=== PATIENT | female | born 1960 | race Caucasian/White ===

== ENCOUNTER 2018-11-20 10:54 | Inpatient (IN) | payer OTHER ==
--- OUTSIDE RECORDS SUMMARY | 2018-11-20 10:59 | XMS REPORT | Clinical Summary ---
:1960 Author Organization [facility] Address [address] [place] [id number] Care Team Providers Name Role Phone Asked, No Pcp Primary Care Provider Unavailable Allergies No Known Allergies Medications No known medications Active Problems Not on file Encounters Date Type Specialty Care Team Description 04/18/2018 Office Visit Orthopedic Surgery Yusra Bond, Hammad Mayers, left MD (Primary Dx) after 11/19/2017 Family History Medical History Relation Name Comments Cancer Maternal Grandmother Isabel Skin, pancreatic Osteoporosis Maternal Grandmother Isabel Scoliosis Maternal Grandmother Isabel Anesthesia problems Mother Deidre Severe nausea and vomiting Diabetes Mother Deidre Pre-diabetes Osteoporosis Mother Deidre Scoliosis Mother Deidre Diabetes Paternal Grandmother Thelma Osteoporosis Paternal Grandmother Thelma Anesthesia problems Sister Cecelia Severe nausea and vomiting Osteoporosis Sister Cecelia Relation Name Status Comments Maternal Grandmother Isabel Mother Deidre Paternal Grandmother Thelma Sister Cecelia Social History Tobacco Use Types Packs/Day Years Used Date Former Smoker Cigarettes 0.25 Smokeless Tobacco: Former User Comments: As a teenager from age of 14 to 22. Alcohol Use Drinks/Week oz/Week Comments Yes 1 Standard drinks or equivalent Social Sex Assigned at Date Recorded Not on file Job Start Date Occupation Industry Not on file Not on file Not on file Travel History Travel Start Travel End No recent travel history available. Last Filed Vital Signs Not on file Plan of Treatment Health Maintenance Due Date Last Done Comments BREAST CANCER SCREENING 2012 COLON CANCER SCREENING 2012 SHINGLES VACCINES (#1) 2012 INFLUENZA VACCINE 01/30/2019 Procedures Procedure Name Priority Date/Time Associated Diagnosis Comments DE INJECT Routine 04/18/2018 9:00 AM Hammad Mayers, Results for this ANES/STEROID CDT left procedure are in [facility] the results DIGITAL NERVE section. XR FOOT 3+ VW LEFT Routine 04/18/2018 8:44 AM NeuromPanda yang's, Results for this CDT left procedure are in the results section. after 11/19/2017 Results NERVE BLOCK (04/18/2018 9:00 AM CDT) Narrative Performed At Yusra Bond MD 04/18/20189:10 AM Nerve Block Date/Time: 04/18/2018 9:05 AM Performed by: YUSRA BOND Authorized by: YUSRA BOND Consent: Consent obtained:Verbal Consent given by:Patient Risks discussed:Pain Alternatives discussed:Alternative treatment Location: Body area:Lower extremity Lower extremity nerve:Digital Laterality:Left Pre-procedure details: Skin preparation:Alcohol Procedure details (see MAR for exact dosages): Block needle gauge:27 G Left Lower Extremity Medications Administered: 0.25 mL bupivacaine 0.5 % (5 mg/mL); 0.25 mL lidocaine 10 mg/mL (1 %); 20 mg methylPREDNISolone acetate 40 mg/mL Post-procedure details: Patient tolerance of procedure:Tolerated well, no immediate complications XR Foot 3+ Vw Left (04/18/2018 8:44 AM CDT) Specimen Narrative Performed At 3 views taken today of the left foot show well-preserved joint spaces [facility] throughout. There is no significant deformity or malalignment. There are no acute fractures or dislocations. The longitudinal arch appears neutral. There is no soft tissue swelling noted. Performing Organization Address City/State/Zipcode Phone Number [facility] [address] [place] [address] after 11/19/2017 Advance Directives Patient has advance care planning documents on file. For more information, please contact:[facility] [place] [address]
[2018-11-20] MEDS ORDERED: CLINDAMYCIN 600MG/D5W 600 MG/50 ML BAG IV ONE (11:40)
[2018-11-20] MEDS ORDERED: NA CHLORIDE 0.9% 1,000 ML ONE (11:40)
[2018-11-20 12:02] LABS: Absolute Lymphocytes (CBC) 0.8 K/uL (0.7-4.9); Absolute Monocytes 0.8 K/uL (0.1-1.3); Absolute Neutrophil 13.4 K/uL (1.8-8.0); Basophils % 0.4 % (0-1.3); Eosinophils % 0.3 % (0-4.4); MPV 8.7 fL (7.6-11.3); Monocytes % 5.4 % (3.3-12.3); RBC Red Blood Cell Count 3.98 M/uL (3.86-4.86)
[2018-11-20 12:18] LABS: Potassium 3.6 mmol/L (3.5-5.1)
--- NOTE | 2018-11-20 12:21 | RAD REPORT ---
EXAM DESCRIPTION: US - Extremity Nonvascular Limited - 11/20/2018 12:12 pm CLINICAL HISTORY: evaluate for abscess;Pain COMPARISON: No comparisons TECHNIQUE: Real-time sonographic evaluation of the area of interest was performed. FINDINGS: Significant thickening of the skin and subcutaneous tissues present compatible with cellul itis. Small poorly defined subcutaneous fluid collections are seen, suspicious for small subcutaneous abscesses.
[2018-11-20 13:32] LABS: Platelet Estimate ADEQ
[2018-11-20 13:33] LABS: Blood Morphology Comment NOT SEEN (NOT SEEN)
--- NOTE | 2018-11-20 14:36 | ER ---
Nurse's Notes [facility] Name: Samantha Hauser Age: 58 yrs Sex: Female : 1960 Arrival Date: 11/20/2018 Time: 10:55 Bed 13 Private MD: Diagnosis: Cellulitis of right upper limb-failed outpatient therapy;Cutaneous abscess of right upper limb Presentation: 11/20 11:01 Presenting complaint: Patient states: redness and swelling to R upper arm that began 3 ss days ago. Pt began taking Bactrim 3 days ago, but symptoms have not improved, but gotten worse. Sent by urgent care for further evaluation. Transition of care: patient was not received from another setting of care. Onset of symptoms was November 18, 2018. Risk Assessment: Do you want to hurt yourself or someone else? Patient reports no desire to harm self or others. Initial Sepsis Screen: Does the patient meet any 2 criteria? HR > 90 bpm. Does the patient have a suspected source of infection? No. Patient's initial sepsis screen is negative. Care prior to arrival: None. 11:01 Method Of Arrival: Ambulatory ss 11:01 Acuity: YANNICK 3 ss Historical: - Allergies: 11:03 No Known Allergies; ss - Home Meds: 11:03 Bactrim DS 800-160 mg Oral tab [Active]; ss - PMHx: 11:03 None; ss - PSHx: 11:03 rhinoplasty; ss - Immunization history:: Adult Immunizations up to date. - Social history:: Smoking status: Patient/guardian denies using tobacco. - Ebola Screening: : Patient denies exposure to infectious person Patient denies travel to an Ebola-affected area in the 21 days before illness onset. Screenin:05 Abuse screen: Denies threats or abuse. Nutritional screening: No deficits noted. tw2 Tuberculosis screening: No symptoms or risk factors identified. Fall Risk None identified. Assessment: 11:05 General: Appears in no apparent distress. well groomed, Behavior is calm, cooperative, tw2 appropriate for age. Pain: Complains of pain in right arm and right tricep. Neuro: Level of Consciousness is awake, alert, obeys commands, Oriented to person, place, time, situation. Cardiovascular: Heart tones S1 S2 Patient's skin is warm and dry. Respiratory: Airway is patent Respiratory effort is even, unlabored, Respiratory pattern is regular, symmetrical, Breath sounds are clear bilaterally. GI: No signs and/or symptoms were reported involving the gastrointestinal system. : No signs and/or symptoms were reported regarding the genitourinary system. EENT: No signs and/or symptoms were reported regarding the EENT system. Derm: Abscess located on right tricep. 13:22 Reassessment: Patient appears in no apparent distress at this time. No changes from tw2 previously documented assessment. Patient and/or family updated on plan of care and expected duration. Pain level reassessed. Patient is alert, oriented x 3, equal unlabored respirations, skin warm/dry/pink. 15:41 Reassessment: Patient appears in no apparent distress at this time. No changes from tw2 previously documented assessment. Patient and/or family updated on plan of care and expected duration. Pain level reassessed. Patient is alert, oriented x 3, equal unlabored respirations, skin warm/dry/pink. Vital Signs: 11:03 BP 113 / 58; Pulse 100; Resp 16; Temp 98.9(TE); Pulse Ox 97% on R/A; Weight 61.23 kg; ss Height 5 ft. 4 in. (162.56 cm); 13:23 BP 112 / 64; Pulse 103; Resp 17; Pulse Ox 97% on R/A; tw2 14:09 BP 115 / 68; Pulse 111; Resp 17; Temp 99.3(TE); Pulse Ox 97% on R/A; mh5 15:00 BP 114 / 66; Pulse 106; Resp 17; Pulse Ox 96% ; tw2 11:03 Body Mass Index 23.17 (61.23 kg, 162.56 cm) ED Course: 10:55 Patient arrived in ED. as 11:02 Triage completed. ss 11:03 Arm band placed on right wrist. ss 11:05 Lola Arevalo RN is Primary Nurse. tw2 11:05 Yael Lindsey FNP-C [facility]. kb 11:05 Milan Vazquez MD is Attending Physician. kb 11:05 Placed in gown. Bed in low position. Call light in reach. Adult w/ patient. Pulse ox tw2 on. NIBP on. 11:30 Inserted saline lock: 22 gauge in left antecubital area, using aseptic technique. Blood tw2 collected. 11:40 Inserted 23g butterfly stick to LEFT hand for 2nd set of blood cultures at this time. tw2 12:12 US Extrmty Nonvasular Limited In Process Unspecified. EDMS 14:33 Denita Borja MD is Hospitalizing Provider. kb 17:13 Report given to Tatiana Silver RN. aj1 17:33 No provider procedures requiring assistance completed. Patient admitted, IV remains in tw2 place. Administered Medications: 11:30 Drug: NS 0.9% 1000 ml Route: IV; Rate: 1000 ml; Site: left antecubital; tw2 17:21 Follow up: IV Status: Completed infusion; IV Intake: 1000ml tw2 11:48 Drug: Clindamycin 600 mg Route: IVPB; Infused Over: 30 mins; Site: left antecubital; tw2 12:20 Follow up: Response: No adverse reaction; IV Status: Completed infusion tw2 15:15 Drug: vancoMYCIN 1 grams Route: IVPB; Infused Over: 2 hrs; Site: left antecubital; tw2 17:22 Follow up: Response: No adverse reaction; IV Status: Completed infusion tw2 Intake: 17:21 IV: 1000ml; Total: 1000ml. tw2 Outcome: 14:35 Decision to Hospitalize by Provider. kb 17:33 Admitted to Med/surg accompanied by tech, via wheelchair. tw2 17:33 Condition: stable 17:33 Instructed on the need for admit. 17:34 Patient left the ED. tw2 Signatures: Dispatcher [employer] EDSD Yael Lindsey, MANAGER THERAPY-C MANAGER THERAPY-Candy Martin RN RN aj1 Hien Ro Shelby, RN RN Lola Arevalo RN RN tw2 Darby Ro [facility]
--- NOTE | 2018-11-20 14:36 | EDPHYS ---
Physician Documentation [facility] Name: Samantha Hauser Age: 58 yrs Sex: Female : 1960 Arrival Date: 11/20/2018 Time: 10:55 Bed 13 Private MD: ED Physician Milan Vazquez HPI: 11/20 11:37 This 58 yrs old Female presents to ER via Ambulatory with complaints of kb Cellulitis. 11:38 The patient presents with cellulitis of the right tricep. Description: erythematous, kb hot, swollen, tense. Onset: The symptoms/episode began/occurred 3 day(s) ago. Possible cause(s): unknown. Associated signs and symptoms: Pertinent positives: erythema, fever, swelling, Pertinent negatives: discharge, drainage, foreign body sensation, headache, nausea, shortness of breath, vomiting. Modifying factors: the symptoms are alleviated by nothing, the symptoms are aggravated by pressure, touching. Severity of symptoms: At their worst the symptoms were moderate, in the emergency department the symptoms are unchanged. The patient has not experienced similar symptoms in the past. The patient has not recently seen a physician. Pt reports she felt a pinprick sensation to back of arm on Sunday night, woke up with cellulitis to back of right arm Sunday morning. Started Bactrim DS BID that day and has taken 5 doses, but symptoms are getting worse. . Historical: - Allergies: 11:03 No Known Allergies; ss - Home Meds: 11:03 Bactrim DS 800-160 mg Oral tab [Active]; ss - PMHx: 11:03 None; ss - PSHx: 11:03 rhinoplasty; ss - Immunization history:: Adult Immunizations up to date. - Social history:: Smoking status: Patient/guardian denies using tobacco. - Ebola Screening: : Patient denies exposure to infectious person Patient denies travel to an Ebola-affected area in the 21 days before illness onset. ROS: 11:41 Neck: Negative for injury, pain, and swelling, Cardiovascular: Negative for chest pain, kb palpitations, and edema, Respiratory: Negative for shortness of breath, cough, wheezing, and pleuritic chest pain, Abdomen/GI: Negative for abdominal pain, nausea, vomiting, diarrhea, and constipation, MS/Extremity: Negative for injury and deformity, Neuro: Negative for headache, weakness, numbness, tingling, and seizure. 11:41 Constitutional: Positive for fever. 11:41 Skin: Positive for cellulitis, of the right tricep. Exam: 11:41 Skin: cellulitis, that is moderate, on the right tricep. kb 11:41 Constitutional: This is a well developed, well nourished patient who is awake, alert, kb and in no acute distress. Head/Face: Normocephalic, atraumatic. Chest/axilla: Normal chest wall appearance and motion. Nontender with no deformity. No lesions are appreciated. Cardiovascular: Regular rate and rhythm with a normal S1 and S2. No gallops, murmurs, or rubs. Normal PMI, no JVD. No pulse deficits. Respiratory: Lungs have equal breath sounds bilaterally, clear to auscultation and percussion. No rales, rhonchi or wheezes noted. No increased work of breathing, no retractions or nasal flaring. Abdomen/GI: Soft, non-tender, with normal bowel sounds. No distension or tympany. No guarding or rebound. No evidence of tenderness throughout. Neuro: Awake and alert, GCS 15, oriented to person, place, time, and situation. Cranial nerves II-XII grossly intact. Motor strength 5/5 in all extremities. Sensory grossly intact. Cerebellar exam normal. Normal gait. 11:41 Musculoskeletal/extremity: ROM: limited active range of motion, limited active range of kb motion due to pain, in the anterior aspect of right shoulder. Vital Signs: 11:03 BP 113 / 58; Pulse 100; Resp 16; Temp 98.9(TE); Pulse Ox 97% on R/A; Weight 61.23 kg; ss Height 5 ft. 4 in. (162.56 cm); 13:23 BP 112 / 64; Pulse 103; Resp 17; Pulse Ox 97% on R/A; tw2 14:09 BP 115 / 68; Pulse 111; Resp 17; Temp 99.3(TE); Pulse Ox 97% on R/A; mh5 15:00 BP 114 / 66; Pulse 106; Resp 17; Pulse Ox 96% ; tw2 11:03 Body Mass Index 23.17 (61.23 kg, 162.56 cm) MDM: 11:05 Patient medically screened. kb 11:41 Data reviewed: vital signs, nurses notes. Data interpreted: Pulse oximetry: on room air kb is 97 %. Interpretation: normal. 13:52 ED course: ERP to evaluate pt . kb 14:30 Counseling: I had a detailed discussion with the patient and/or guardian regarding: the kb historical points, exam findings, and any diagnostic results supporting the discharge/admit diagnosis, lab results, radiology results, the need for further work-up and treatment in the hospital. 11/20 11:23 Order name: CBC with Diff; Complete Time: 13:36 kb 11/20 11:23 Order name: Basic Metabolic Panel; Complete Time: 12:20 kb 11/20 11:23 Order name: Blood Culture Adult (2) kb 11/20 11:23 Order name: US Extrmty Nonvasular Limited; Complete Time: 12:23 kb 11/20 12:22 Order name: Manual Differential; Complete Time: 13:36 EDMS 11/20 13:31 Order name: Procalcitonin; Complete Time: 14:05 em1 11/20 11:23 Order name: IV Start; Complete Time: 11:51 kb 11/20 15:13 Order name: Diet Regular; Complete Time: 15:14 ss Administered Medications: 11:30 Drug: NS 0.9% 1000 ml Route: IV; Rate: 1000 ml; Site: left antecubital; tw2 17:21 Follow up: IV Status: Completed infusion; IV Intake: 1000ml tw2 11:48 Drug: Clindamycin 600 mg Route: IVPB; Infused Over: 30 mins; Site: left antecubital; tw2 12:20 Follow up: Response: No adverse reaction; IV Status: Completed infusion tw2 15:15 Drug: vancoMYCIN 1 grams Route: IVPB; Infused Over: 2 hrs; Site: left antecubital; tw2 17:22 Follow up: Response: No adverse reaction; IV Status: Completed infusion tw2 Disposition: 18:01 Co-signature as Attending Physician, Milan Vazquez MD. rn Disposition: 11/20/18 14:35 Hospitalization ordered by Denita Borja for Inpatient Admission. Preliminary diagnosis are Cellulitis of right upper limb - failed outpatient therapy, Cutaneous abscess of right upper limb. - Bed requested for Telemetry/MedSurg (Inpatient). - Status is Inpatient Admission. tw2 - Condition is Stable. - Problem is new. - Symptoms are unchanged. UTI on Admission? No Signatures: Dispatcher [employer] EDMS Yael Lindsey, TECHNICAL ENGINEER-C TECHNICAL ENGINEER-Ckb Milan Vazquez MD MD rn Martinez, Eric em1 Lacy Maya RN RN ss Lola Arevalo RN RN tw2 Corrections: (The following items were deleted from the chart) 14:32 11:41 Constitutional: This is a well developed, well nourished patient who is awake, kb alert, and in no acute distress. Head/Face: Normocephalic, atraumatic. Chest/axilla: Normal chest wall appearance and motion. Nontender with no deformity. No lesions are appreciated. Cardiovascular: Regular rate and rhythm with a normal S1 and S2. No gallops, murmurs, or rubs. Normal PMI, no JVD. No pulse deficits. Respiratory: Lungs have equal breath sounds bilaterally, clear to auscultation and percussion. No rales, rhonchi or wheezes noted. No increased work of breathing, no retractions or nasal flaring. Abdomen/GI: Soft, non-tender, with normal bowel sounds. No distension or tympany. No guarding or rebound. No evidence of tenderness throughout. MS/ Extremity: Pulses equal, no cyanosis. Neurovascular intact. Full, normal range of motion. Neuro: Awake and alert, GCS 15, oriented to person, place, time, and situation. Cranial nerves II-XII grossly intact. Motor strength 5/5 in all extremities. Sensory grossly intact. Cerebellar exam normal. Normal gait. kb 16:52 14:35 Hospitalization Ordered by Denita Borja MD for Inpatient Admission. Preliminary em1 diagnosis is Cellulitis of right upper limb - failed outpatient therapy; Cutaneous abscess of right upper limb. Bed requested for Telemetry/MedSurg (Inpatient). Status is Inpatient Admission. Condition is Stable. Problem is new. Symptoms are unchanged. UTI on Admission? No. kb 17:34 16:52 11/20/2018 14:35 Hospitalization Ordered by Denita Borja MD for Inpatient tw2 Admission. Preliminary diagnosis is Cellulitis of right upper limb - failed outpatient therapy; Cutaneous abscess of right upper limb. Bed requested for Telemetry/MedSurg (Inpatient). Status is Inpatient Admission. Condition is Stable. Problem is new. Symptoms are unchanged. UTI on Admission? No. em1
[2018-11-20] MEDS ORDERED: VANCOMYCIN/NS 1 gm 1 GM/250 ML BAG IV ONE (15:00)
--- NOTE | 2018-11-20 15:11 | P.HP ---
Patient History Date of Service: 11/20/18 Reason for admission: Cellulitis, failed outpatient treat History of Present Illness: This is a 58-year-old previously healthy female admitted for cellulitis of her right upper extremity. Per patient, this started on Sunday, 3 days ago, with an erythematous area that has gotten progressively worse. She did get a prescription of Bactrim double-strength on Sunday. She has had a total of 5 doses of Bactrim. Even with the antibiotics, the symptoms have gotten progressively worse. She has now developed fevers, pain to touch on the area, hot warm area with pain in the shoulder joint as well. She therefore came to the ER for further evaluation. In the ER, her initial vital signs were blood pressure 113/53, heart rate of 100 , respirations of 16, afebrile at 98.9, satting 97% on room air. She has a BMI of 23.7. Her labs were remarkable for WBC count of 15.1, otherwise were fairly unremarkable. An ultrasound of the extremity showed small poorly defined subcutaneous fluid collection, suspicious for small subcutaneous abscesses. Not big enough to drain. She received clindamycin, vancomycin IV fluids in the ER. At the time of my exam, she was alert oriented x3, in no acute distress and hemodynamically stable. She was admitted for failed outpatient antibiotic therapy for cellulitis on her right upper extremity and for IV antibiotic treatment. Allergies No Known Allergies Allergy (Unverified 11/20/18 14:51) Home medications list reviewed: Yes - Past Medical/Surgical History Diabetic: No Past Medical History: Patient denies medical history (Open) -: Rhinoplasty - Social History Smoking Status: Never smoker Review of Systems 10-point ROS is otherwise unremarkable Physical Examination - Physical Exam General: Alert, In no apparent distress, Oriented x3 HEENT: Atraumatic, PERRLA, Mucous membr. moist/pink, EOMI, Sclerae nonicteric Neck: Supple, 2+ carotid pulse no bruit, No LAD, Without JVD or thyroid abnormality Respiratory: Clear to auscultation bilaterally, Normal air movement Cardiovascular: Regular rate/rhythm, Normal S1 S2 Gastrointestinal: Normal bowel sounds, No tenderness Musculoskeletal: Tenderness (Right shoulder) Integumentary: Skin lesion, Erythema (On right tricep), Warmth Neurological: Normal gait, Normal speech, Normal strength at 5/5 x4 extr, Normal tone, Normal affect Lymphatics: No axilla or inguinal lymphadenopathy - Studies Laboratory Data (last 24 hrs) 11/20/18 10:30: Sodium 137, Potassium 3.6, BUN 6 L, Creatinine 0.74, Glucose 111 H 11/20/18 10:30: WBC 15.1 H, Hgb 12.8, Hct 38.0, Plt Count 282 Assessment and Plan - Problems (Diagnosis) (1) Cellulitis Current Visit: Yes Status: Acute Plan: Failed outpatient treatment with Bactrim double-strength. Will start IV clindamycin and vancomycin for MRSE coverage. 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 Qualifiers: Site of cellulitis: extremity Site of cellulitis of extremity: upper extremity Laterality: right Qualified Code(s): L03.113 - Cellulitis of right upper limb (2) Failure of outpatient treatment Current Visit: Yes Status: Acute (3) Leukocytosis Current Visit: Yes Status: Acute Qualifiers: Leukocytosis type: bandemia Qualified Code(s): D72.825 - Bandemia - Plan DVT prophylaxis: Lovenox GI prophylaxis: None Diet: Heart healthy Disposition: Admit to floor. Start IV antibiotics, demarcate area and monitor. - Advance Directives Does patient have a Living Will: No Does patient have a Durable POA for Healthcare: No
[2018-11-20] MEDS: ENOXAPARIN 40 MG/0.4 ML SQ SCH (18:00)
[2018-11-20] MEDS: TRAMADOL HCL 50 MG TAB PO PRN (18:29)
[2018-11-20] MEDS: CLINDAMYCIN INJ 600 MG in NA CHLORIDE 0.9% 50 ML IV SCH (18:30)
[2018-11-20] MEDS ORDERED: POTASSIUM CL SA 10 MEQ TAB PO ONE (19:00)
[2018-11-20 19:23] LABS: Urine Appearance CLEAR; Urine Bilirubin NEGATIVE (NEG); Urine Blood NEGATIVE (NEG); Urine Color YELLOW; Urine Glucose NEGATIVE (NEG); Urine Protein NEGATIVE (NEG); Urine Specific Gravity <=1.005 (1.005-1.030); Urine Urobilinogen 0.2 mg/dL (0.2-1.0); Urine pH 6.5 (5.0-7.0)
[2018-11-20 19:24] LABS: Urine Microscopic Reflex NO UMIC
[2018-11-20] MEDS ORDERED: ACETAMINOPHEN 325 MG TABLET PO ONE (20:00)
[2018-11-21] MEDS: CLINDAMYCIN INJ 600 MG in NA CHLORIDE 0.9% 50 ML IV SCH ×3 (01:17→17:26)
[2018-11-21] MEDS: TRAMADOL HCL 50 MG TAB PO PRN (01:29)
[2018-11-21] MEDS: NA CHLORIDE 0.9% 1,000 ML IV SCH ×2 (05:40→17:26)
[2018-11-21 06:08] LABS: Absolute Lymphocytes (CBC) 1.3 K/uL (0.7-4.9); Absolute Monocytes 0.8 K/uL (0.1-1.3); Absolute Neutrophil 9.9 K/uL (1.8-8.0); Basophils % 0.2 % (0-1.3); Eosinophils % 2.9 % (0-4.4); Hematocrit 30.6 % (36.0-45.0); Lymphocytes % 10.5 % (15.3-44.8); MPV 8.7 fL (7.6-11.3); Monocytes % 6.4 % (3.3-12.3)
[2018-11-21 06:18] LABS: ALT/SGPT 11 U/L (12-78); AST/SGOT 19 U/L (15-37); Alkaline Phosphatase 73 U/L (45-117); BUN Blood Urea Nitrogen 7 mg/dL (7-18); Bicarbonate 24 mmol/L (21-32); Bilirubin Total 1.1 mg/dL (0.2-1.0); Glucose Level 94 mg/dL (74-106); Magnesium 2.1 mg/dL (1.8-2.4); Phosphorus 2.3 mg/dL (2.5-4.9); Potassium 4.1 mmol/L (3.5-5.1); Protein, Total 6.3 g/dL (6.4-8.2); Sodium Level 132 mmol/L (136-145)
[2018-11-21] MEDS ORDERED: POTASS/SODIUM PHOSPHATE 1 PKT POWD.PACK PO ONE ×4 (07:00→09:00)
[2018-11-21] MEDS: ENOXAPARIN 40 MG/0.4 ML SQ SCH (08:49)
--- NOTE | 2018-11-21 10:29 | P.PN ---
Subjective Date of Service: 11/21/18 Chief Complaint: Cellulitis, failed outpatient treat Subjective: Improving Patient seen and examined at bedside. Family at bedside. Chart reviewed and case discussed with nursing staff. Reports improved area of cellulitis improved range of motion in the shoulder. Range of motion though still not completely back to baseline. Complaining of a headache and some nausea, otherwise doing well. Review of Systems 10-point ROS is otherwise unremarkable Physical Examination - Vital Signs Temperature: 99.1 F Blood Pressure: 96/48 Pulse: 93 Respirations: 16 Pulse Ox (%): 98 - Physical Exam General: Alert, In no apparent distress, Oriented x3 HEENT: Atraumatic, PERRLA, EOMI Neck: Supple, JVD not distended Respiratory: Clear to auscultation bilaterally, Normal air movement Cardiovascular: Regular rate/rhythm, Normal S1 S2 Gastrointestinal: Normal bowel sounds, No tenderness Musculoskeletal: No tenderness Integumentary: No rashes Neurological: Normal speech, Normal tone, Normal affect Lymphatics: No axilla or inguinal lymphadenopathy - Studies Laboratory Data (last 24 hrs) 11/20/18 10:30: Sodium 137, Potassium 3.6, BUN 6 L, Creatinine 0.74, Glucose 111 H 11/20/18 10:30: WBC 15.1 H, Hgb 12.8, Hct 38.0, Plt Count 282 Assessment And Plan - Current Problems (Diagnosis) (1) Cellulitis Current Visit: Yes Status: Acute Plan: Failed outpatient treatment with Bactrim double-strength. Continue IV clindamycin Blood cultures negative till date Demarcate area of cellulitis, and monitor. Qualifiers: Site of cellulitis: extremity Site of cellulitis of extremity: upper extremity Laterality: right Qualified Code(s): L03.113 - Cellulitis of right upper limb (2) Failure of outpatient treatment Current Visit: Yes Status: Acute (3) Leukocytosis Current Visit: Yes Status: Acute Plan: Improving. Will continue to trend and monitor Qualifiers: Leukocytosis type: bandemia Qualified Code(s): D72.825 - Bandemia - Plan DVT prophylaxis: Lovenox GI prophylaxis: None Diet: Heart healthy Disposition: Continue IV antibiotics, demarcate area and monitor. Anticipate discharge in the next 24 hr on oral clindamycin
[2018-11-21] MEDS: ACETAMIN/CAFFEINE/BUTALB TAB PO PRN ×2 (10:37→16:06)
[2018-11-21] MEDS ORDERED: NA CHLORIDE 0.9% 500 ML IV ONE (20:43)
[2018-11-21] MEDS ORDERED: SUMATRIPTAN SUCCI 50 MG TAB PO ONE (21:35)
[2018-11-22] MEDS: NA CHLORIDE 0.9% 1,000 ML IV SCH ×2 (00:39→07:40)
[2018-11-22] MEDS: CLINDAMYCIN INJ 600 MG in NA CHLORIDE 0.9% 50 ML IV SCH ×3 (00:39→12:40)
[2018-11-22 06:06] LABS: Absolute Lymphocytes (CBC) 1.2 K/uL (0.7-4.9); Absolute Monocytes 0.9 K/uL (0.1-1.3); Basophils % 0.5 % (0-1.3); Eosinophils % 3.1 % (0-4.4); Hematocrit 30.7 % (36.0-45.0); Lymphocytes % 14.9 % (15.3-44.8); MPV 8.9 fL (7.6-11.3); Monocytes % 10.5 % (3.3-12.3); RBC Red Blood Cell Count 3.22 M/uL (3.86-4.86)
[2018-11-22 06:36] LABS: ALT/SGPT 14 U/L (12-78); AST/SGOT 19 U/L (15-37); Albumin 2.9 g/dL (3.4-5.0); Alkaline Phosphatase 76 U/L (45-117); BUN Blood Urea Nitrogen 5 mg/dL (7-18); Bicarbonate 25 mmol/L (21-32); Bilirubin Total 0.5 mg/dL (0.2-1.0); Glucose Level 95 mg/dL (74-106); Protein, Total 6.5 g/dL (6.4-8.2); Sodium Level 140 mmol/L (136-145)
[2018-11-22] MEDS: ENOXAPARIN 40 MG/0.4 ML SQ SCH (08:17)
[2018-11-22] MEDS: ACETAMIN/CAFFEINE/BUTALB TAB PO PRN (08:18)
[2018-11-22] MEDS ORDERED: SUMATRIPTAN SUCCI 50 MG TAB PO ONE (09:44)
--- NOTE | 2018-11-22 16:39 | P.DS ---
Admission Date: 11/20/18 Discharge Date: 11/22/18 Disposition: ROUTINE DISCHARGE Discharge Condition: GOOD Reason for Admission: Cellulitis, failed outpatient treat - Problems (1) Cellulitis Status: Acute Qualifiers: Site of cellulitis: extremity Site of cellulitis of extremity: upper extremity Laterality: right Qualified Code(s): L03.113 - Cellulitis of right upper limb (2) Failure of outpatient treatment Status: Acute (3) Leukocytosis Status: Acute Qualifiers: Leukocytosis type: bandemia Qualified Code(s): D72.825 - Bandemia Brief History of Present Illness: This is a 58-year-old previously healthy female admitted for cellulitis of her right upper extremity. Per patient, this started on Sunday, 3 days ago, with an erythematous area that has gotten progressively worse. She did get a prescription of Bactrim double-strength on Sunday. She has had a total of 5 doses of Bactrim. Even with the antibiotics, the symptoms have gotten progressively worse. She has now developed fevers, pain to touch on the area, hot warm area with pain in the shoulder joint as well. She therefore came to the ER for further evaluation. In the ER, her initial vital signs were blood pressure 113/53, heart rate of 100 , respirations of 16, afebrile at 98.9, satting 97% on room air. She has a BMI of 23.7. Her labs were remarkable for WBC count of 15.1, otherwise were fairly unremarkable. An ultrasound of the extremity showed small poorly defined subcutaneous fluid collection, suspicious for small subcutaneous abscesses. Not big enough to drain. She received clindamycin, vancomycin IV fluids in the ER. At the time of my exam, she was alert oriented x3, in no acute distress and hemodynamically stable. She was admitted for failed outpatient antibiotic therapy for cellulitis on her right upper extremity and for IV antibiotic treatment. Hospital Course: Patient was admitted for cellulitis of her right upper extremity, failed outpatient treatment with Bactrim double-strength. She was started on IV antibiotics with clindamycin. Blood cultures remained negative. Wound cultures were drawn, pending. Clinically, her redness, pain and shoulder joint stiffness improved. Patient was able to move her arm. Patient remained afebrile and hemodynamically stable throughout the stay. Her leukocytosis also improved with IV antibiotics. Her diagnoses/treatment plan were explained to her. All questions were answered , patient verbalized understanding. Patient discharged home in a safe and stable manner on oral clindamycin to complete a 14 day course. Vital Signs/Physical Exam: Temp Pulse Resp BP Pulse Ox 98.3 F 87 18 113/57 L 99 11/22/18 12:00 11/22/18 12:00 11/22/18 12:00 11/22/18 12:00 11/22/18 12:00 General: Alert, In no apparent distress, Oriented x3 HEENT: Atraumatic, PERRLA, EOMI Neck: Supple, JVD not distended Respiratory: Clear to auscultation bilaterally, Normal air movement Cardiovascular: Regular rate/rhythm, Normal S1 S2 Gastrointestinal: Normal bowel sounds, No tenderness Musculoskeletal: No clubbing, No swelling, No contractures, No erythema, No tenderness, No warmth Integumentary: Skin lesion, Tenderness/swelling, Erythema, Warmth (Improved from admission, right upper extremity, triceps area.) Neurological: Normal speech, Normal tone, Normal affect Lymphatics: No axilla or inguinal lymphadenopathy Laboratory Data at Discharge: WBC 8.4 K/uL (4.3-10.9) D 11/22/18 05:27 Hgb 10.5 g/dL (12.0-15.0) L 11/22/18 05:27 Hct 30.7 % (36.0-45.0) L 11/22/18 05:27 Plt Count 255 K/uL (152-406) 11/22/18 05:27 Sodium 140 mmol/L (136-145) 11/22/18 05:27 Potassium 4.0 mmol/L (3.5-5.1) 11/22/18 05:27 BUN 5 mg/dL (7-18) L 11/22/18 05:27 Creatinine 0.56 mg/dL (0.55-1.3) 11/22/18 05:27 Glucose 95 mg/dL (74-106) 11/22/18 05:27 Phosphorus 3.0 mg/dL (2.5-4.9) 11/22/18 05:27 Magnesium 2.1 mg/dL (1.8-2.4) 11/21/18 05:40 Total Bilirubin 0.5 mg/dL (0.2-1.0) 11/22/18 05:27 AST 19 U/L (15-37) 11/22/18 05:27 ALT 14 U/L (12-78) 11/22/18 05:27 Alkaline Phosphatase 76 U/L (45-117) 11/22/18 05:27 Home Medications: RX: Levocetirizine Dihydrochloride [Xyzal] 1 tab PO DAILY PRN 11/20/18 RX: Acetam/Caff/Butal [Fioricet*] 1 tab PO Q6H PRN tab 11/22/18 RX: Clindamycin HCl 300 mg PO TID #42 capsule 11/22/18 Sumatriptan [Imitrex] 50 mg PO Q4HP PRN #10 tab 11/22/18 New Medications: Sumatriptan [Imitrex] 50 mg PO Q4HP PRN #10 tab PRN Reason: Pain Scale 5-7 (Moderate) RX: Clindamycin HCl 300 mg PO TID #42 capsule Patient Discharge Instructions: Please follow up with the primary care physician in 2-3 days. Please return to the emergency room for worsening symptoms Diet: Regular Activity: Ad daniela Time spent managing pt's care (in minutes): 45
--- NOTE | 2018-11-22 16:46 | EKG ---
Test Date: 2018-11-21 Test Time: 20:38:38 Teaching Music Lessons: RT-O MEASUREMENT RESULTS: Intervals: Rate: 102 DC: 130 QRSD: 82 QT: 312 QTc: 406 [place]: P: -8 DC: 130 QRS: 43 T: 26 INTERPRETIVE STATEMENTS: Sinus tachycardia Otherwise normal ECG No previous ECG available for comparison Electronically Signed On 11-22-18 16:43:07 CDT by Bharath Gaspar
== END 2018-11-22 14:06 | disposition home or self-care (01) | DRG 603 ==
LOC: ER 10:54 → ERHOLD 14:57 → 4TH 17:09
PROVIDERS: ADMIT Family Medicine; ATTEND Family Medicine
DX: L03.113 Cellulitis of right upper limb (principal); B95.62 Methicillin resistant Staphylococcus aureus infection as the cause of diseases classified elsewhere
CPT/HCPCS: 36415; 76882; 80048; 80053; 81003; 83735; 84100; 84145; 85025; 87040; 87070; 87077; 87186; 87205; 93005; 96361; 96365; 96366; 96367; 99285; J1650; J3370; J7030